=== PATIENT | female | born 1990 | race Caucasian/White ===

== ENCOUNTER 2016-05-26 16:55 | Emergency (ER) | payer BC ==
[~2016-05-26] VITALS: Ht 177.8 cm; Wt 86.2 kg
[2016-05-26] MEDS ORDERED: FAMOTIDINE/PF INJ 20 MG/2 ML VIAL IV ONE ×3 (17:00→17:06)
[2016-05-26] MEDS ORDERED: diphenhydrAMINE HCL 50 MG/ML VIAL IV ONE (17:00)
[2016-05-26] MEDS ORDERED: DEXAMETHASONE SOD PHOSPHATE 10 MG/ML VIAL IV ONE (17:00)
[2016-05-26] MEDS ORDERED: DEXAMETHASONE SOD PHOSPHATE 4 MG/ML VIAL ONE ×2 (17:04→17:06)
[2016-05-26] MEDS ORDERED: diphenhydrAMINE HCL 50 MG/ML VIAL ONE ×2 (17:04→17:06)
[2016-05-26 18:11] VITALS: BP 124/60
== END 2016-05-26 18:12 | disposition home or self-care (01) ==
LOC: ER 16:56
DX: T78.40XA Allergy, unspecified, initial encounter (principal)
CPT/HCPCS: 96374; 96375; 99284; A4606; J1100; J1200; J3490; Z7610